=== PATIENT | female | born 1960 | race Caucasian/White ===

== ENCOUNTER 2020-04-29 10:35 | Emergency (ER) | payer OTHER, SELFPAY ==
[~2020-04-29] VITALS: Ht 154.9 cm; Wt 97.1 kg
[2020-04-29 11:05] VITALS: BP 159/92
[2020-04-29] MEDS ORDERED: ACETAMINOPHEN EXTRA STRENGTH 500 MG TAB PO ONE (11:45)
--- NOTE | 2020-04-29 11:50 | NUR ---
Covid, Rosalind, and Influenza swab collected and given to lab.
--- NOTE | 2020-04-29 12:39 | NUR ---
+ covid result received from lab. Dr Spaulding made aware.
[2020-04-29] MEDS ORDERED: BAMLANIVIMAB IV ONE (13:20)
[2020-04-29] MEDS ORDERED: NACL 0.9% IV ONE (13:20)
[2020-04-29] MEDS ORDERED: BAMLANIVIMAB 700 MG/20 ML VIAL IV ONE (13:31)
--- NOTE | 2020-04-29 15:10 | NUR ---
PT RESTING IN CHAIR IN SITTING POSITION. PT PLACED ON BLOOD PRESSURE AND PULSE OX. VSS. REPSIRATIONS EVEN/UNLABORED. NO DISTRESS NOTED. PT ADVISED TO USE CALL LIGHT FOR ANY NEEDS.
[2020-04-29 15:32] VITALS: BP 143/78
--- NOTE | 2020-04-29 15:32 | NUR ---
Patient discharged with v/s stable. Written and verbal after care instructions given and explained. Patient alert, oriented and verbalized understanding of instructions. Ambulatory with steady gait. All questions addressed prior to discharge. ID band removed. Patient advised to follow up with PMD. Rx of NAPROSYN, ACETAMINOPHEN given. Patient educated on indication of medication including possible reaction and side effects. Opportunity to ask questions provided and answered.
== END 2020-04-29 15:32 | disposition home or self-care (01) ==
LOC: MED 10:35
DX: U07.1 COVID-19 (principal); I10 Essential (primary) hypertension; E11.9 Type 2 diabetes mellitus without complications; Z90.49 Acquired absence of other specified parts of digestive tract
CPT/HCPCS: 71045; 87426; 87804; 99284; J7030; M0239; Q0239; U0003